=== PATIENT | male | born 1980 | race Caucasian/White ===

== ENCOUNTER 2018-10-06 10:33 | Emergency (ER) | payer OTHER ==
[~2018-10-06] VITALS: Ht 182.9 cm; Wt 83.9 kg
[2018-10-06] MEDS ORDERED: KEFLEX500 M1 PO (11:42)
[2018-10-06 12:19] VITALS: BP 146/106
== END 2018-10-06 12:19 | disposition home or self-care (01) ==
LOC: ER 10:33
DX: S61.211A Laceration without foreign body of left index finger without damage to nail, initial encounter (principal); M32.9 Systemic lupus erythematosus, unspecified; I10 Essential (primary) hypertension; F17.210 Nicotine dependence, cigarettes, uncomplicated; W26.0XXA Contact with knife, initial encounter; Y93.89 Activity, other specified; Y92.89 Other specified places as the place of occurrence of the external cause; Y99.8 Other external cause status

== ENCOUNTER 2020-06-10 10:16 | Emergency (ER) | payer BC ==
[~2020-06-10] VITALS: Ht 182.9 cm; Wt 81.7 kg
[~2020-06-10 10:16] MED LIST: KEFLEX500 M1 PO
[2020-06-10 10:25] VITALS: BP 145/113
[2020-06-10] MEDS ORDERED: AMOXICILLIN500 M1 PO (11:31)
== END 2020-06-10 11:50 | disposition home or self-care (01) ==
LOC: ER 10:16
DX: H61.22 Impacted cerumen, left ear (principal); H66.92 Otitis media, unspecified, left ear; I10 Essential (primary) hypertension; F17.210 Nicotine dependence, cigarettes, uncomplicated; Z79.2 Long term (current) use of antibiotics

== ENCOUNTER 2020-07-30 04:08 | Emergency (ER) | payer BC ==
[~2020-07-30] VITALS: Ht 182.9 cm; Wt 81.7 kg
[~2020-07-30 04:08] MED LIST changes: +AMOXICILLIN500 M1 PO
[2020-07-30 04:11] VITALS: BP 175/121
[2020-07-30] MEDS ORDERED: NORVASC 2.5 MG2.5 M1 PO (04:15)
[2020-07-30] MEDS ORDERED: CARVEDILOL12.5 MG PO (04:15)
[2020-07-30] MEDS ORDERED: LAMICTAL200 MG PO (04:16)
[2020-07-30] MEDS ORDERED: LISINOPRIL20 MG PO (04:16)
[2020-07-30] MEDS ORDERED: HYDROCHLOROTHIA25 M2 PO (04:16)
== END 2020-07-30 04:55 | disposition home or self-care (01) ==
LOC: ER 04:08
DX: H61.23 Impacted cerumen, bilateral (principal); I10 Essential (primary) hypertension; F17.210 Nicotine dependence, cigarettes, uncomplicated; Z79.899 Other long term (current) drug therapy

== ENCOUNTER 2020-11-20 10:03 | Emergency (ER) | payer OTHER ==
[~2020-11-20] VITALS: Ht 182.9 cm; Wt 81.7 kg
[~2020-11-20 10:03] MED LIST changes: +CARVEDILOL12.5 MG PO; +HYDROCHLOROTHIA25 M2 PO; +LAMICTAL200 MG PO; +LISINOPRIL20 MG PO; +NORVASC 2.5 MG2.5 M1 PO
[2020-11-20] MEDS ORDERED: CARBAMAZEPINE100 M2 PO (10:25)
[2020-11-20] MEDS ORDERED: LORAZEPAM 0.50.5 MG PO (10:26)
[2020-11-20] MEDS ORDERED: AMBIEN5 MG PO (10:26)
[2020-11-20 10:57] LABS: ABSOLUTE NEUTROPHILS 4.2 thou/uL (1.4-8.2); BASOPHILS 0.9 % (0.0-2.0); EOSINOPHILS 1.7 % (0.0-3.0); HEMATOCRIT 42.7 % (42.0-52.0); HEMOGLOBIN 14.6 gm/dL (14.0-18.0); LYMPHOCYTES 14.4 % (24.0-44.0); MCH 34.1 pg (26.0-34.0); MCHC 34.1 g/dL (28.0-37.0); MONOCYTES 7.3 % (1.0-8.0); PLATELET COUNT 158 thou/uL (150-400); POLYS 75.7 % (36.0-66.0); RBC 4.27 mil/uL (4.50-6.00); RDW 13.2 % (10.5-14.5); WBC 5.5 thou/uL (4.0-11.0)
[2020-11-20 11:11] LABS: CALCIUM 8.6 mg/dL (8.5-10.1); CREATININE 0.8 mg/dL (0.7-1.3); POTASSIUM 3.6 mmol/L (3.5-5.1)
[2020-11-20 12:11] VITALS: BP 137/72
== END 2020-11-20 12:12 | disposition home or self-care (01) ==
LOC: ER 10:03
PROVIDERS: Emergency Medicine
DX: I10 Essential (primary) hypertension (principal); Z20.822 Contact with and (suspected) exposure to COVID-19; R11.2 Nausea with vomiting, unspecified; R19.7 Diarrhea, unspecified; F41.9 Anxiety disorder, unspecified; F17.210 Nicotine dependence, cigarettes, uncomplicated; Z79.899 Other long term (current) drug therapy

== ENCOUNTER 2020-12-05 10:27 | Emergency (ER) | payer OTHER ==
[~2020-12-05] VITALS: Ht 182.9 cm; Wt 86.2 kg
[~2020-12-05 10:27] MED LIST changes: +AMBIEN5 MG PO; +CARBAMAZEPINE100 M2 PO; +LORAZEPAM 0.50.5 MG PO
[2020-12-05 12:40] LABS: ABSOLUTE NEUTROPHILS 2.5 thou/uL (1.4-8.2); BASOPHILS 1.4 % (0.0-2.0); HEMATOCRIT 44.8 % (42.0-52.0); HEMOGLOBIN 15.3 gm/dL (14.0-18.0); LYMPHOCYTES 24.6 % (24.0-44.0); MCH 34.1 pg (26.0-34.0); MCHC 34.1 g/dL (28.0-37.0); MCV 99.9 fL (80.0-100.0); MONOCYTES 12.2 % (1.0-8.0); PLATELET COUNT 211 thou/uL (150-400); POLYS 59.8 % (36.0-66.0); RBC 4.49 mil/uL (4.50-6.00); RDW 13.4 % (10.5-14.5); WBC 4.2 thou/uL (4.0-11.0)
[2020-12-05 12:49] LABS: ANION GAP 17 mmol/L (7-16); BUN 5 mg/dL (7-18); CALCIUM 8.8 mg/dL (8.5-10.1); CHLORIDE 102 mmol/L (98-107); CO2 19 mmol/L (21-32); CREATININE 0.9 mg/dL (0.7-1.3); GLUCOSE 96 mg/dL (74-106); POTASSIUM 4.1 mmol/L (3.5-5.1); SODIUM 138 mmol/L (136-145)
[2020-12-05 12:54] LABS: ALBUMIN 3.8 g/dL (3.4-5.0); SGOT 124 U/L (15-37); SGPT 93 U/L (16-63); TOTAL BILIRUBIN 0.3 mg/dL (0.2-1.0); TOTAL PROTEIN 9.2 g/dL (6.4-8.2)
[2020-12-05 12:54] LABS: AMP/METHAMP Negative (Negative); BARBITURATES Negative (Negative); BENZODIAZEPINES Negative (Negative); COCAINE Negative (Negative); METHADONE Negative (Negative); OPIATES Negative (Negative); PCP Negative (Negative)
--- NOTE | 2020-12-05 19:23 | NUR ---
SW contacted psychiatric facilities to follow up on referrals faxed. SW was informed that it was the beginning of the shift and they have not had a chance to look at the referrals yet. They will call back with an answer. SW team will remain available.
[2020-12-06 02:57] VITALS: BP 129/94
--- NOTE | 2020-12-06 09:15 | EKG ---
[address] [place] [address] ELECTROCARDIOGRAM REPORT Name: LINDA JOAQUIN Room #: DEP LAURITA Webber#: [id number] Admission: 12/05/20 Attend Phys: Discharge: 12/06/20 Date of : [birth year] Report #: [id number] 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
== END 2020-12-06 03:00 ==
LOC: ER 10:27
PROVIDERS: Emergency Medicine
DX: F32.9 Major depressive disorder, single episode, unspecified (principal); Z20.822 Contact with and (suspected) exposure to COVID-19; I10 Essential (primary) hypertension; F41.9 Anxiety disorder, unspecified; F17.210 Nicotine dependence, cigarettes, uncomplicated; F10.129 Alcohol abuse with intoxication, unspecified; Z79.899 Other long term (current) drug therapy; Y90.6 Blood alcohol level of 120-199 mg/100 ml

== ENCOUNTER 2020-12-16 22:31 | Emergency (ER) | payer OTHER ==
[~2020-12-16] VITALS: Ht 182.9 cm; Wt 81.7 kg
[2020-12-16 23:38] LABS: URINE BILIRUBIN NEGATIVE (Negative); URINE BLOOD TRACE (Negative); URINE CLARITY CLEAR; URINE COLOR YELLOW; URINE GLUCOSE-RANDOM* NEGATIVE (Negative); URINE KETONES NEGATIVE (Negative); URINE LEUKOCYTES-REFLEX NEGATIVE (Negative); URINE NITRITE-REFLEX NEGATIVE (Negative); URINE PROTEIN (DIPSTICK) 1+ (Negative); URINE UROBILINOGEN 0.2 E.U./dl (0.2-1.0)
[2020-12-16 23:41] LABS: ABSOLUTE NEUTROPHILS 2.1 thou/uL (1.4-8.2); HEMOGLOBIN 14.8 gm/dL (14.0-18.0); WBC 3.9 thou/uL (4.0-11.0)
[2020-12-16 23:43] LABS: BASOPHILS 3.3 % (0.0-2.0); EOSINOPHILS 2.7 % (0.0-3.0); MCH 33.8 pg (26.0-34.0); MCHC 34.4 g/dL (28.0-37.0); MCV 98.1 fL (80.0-100.0); MONOCYTES 10.1 % (1.0-8.0); PLATELET COUNT 190 thou/uL (150-400); POLYS 53.9 % (36.0-66.0); RBC 4.39 mil/uL (4.50-6.00); RDW 12.8 % (10.5-14.5)
[2020-12-16 23:46] LABS: AMP/METHAMP Negative (Negative); BARBITURATES Negative (Negative); BENZODIAZEPINES Negative (Negative); COCAINE Negative (Negative); METHADONE Negative (Negative); OPIATES Negative (Negative); PCP Negative (Negative)
[2020-12-17 00:03] LABS: ANION GAP 19 mmol/L (7-16); BUN 7 mg/dL (7-18); CALCIUM 8.4 mg/dL (8.5-10.1); CHLORIDE 95 mmol/L (98-107); CO2 21 mmol/L (21-32); CREATININE 0.8 mg/dL (0.7-1.3); GLUCOSE 101 mg/dL (74-106); POTASSIUM 3.5 mmol/L (3.5-5.1); SODIUM 135 mmol/L (136-145)
[2020-12-17 00:12] LABS: ALBUMIN 3.7 g/dL (3.4-5.0); LIPASE 145 U/L (73-393); SALICYLATE 5.8 mg/dL (2.8-20.0); SGOT 149 U/L (15-37); SGPT 113 U/L (16-63); TOTAL BILIRUBIN 0.2 mg/dL (0.2-1.0); TOTAL PROTEIN 8.6 g/dL (6.4-8.2)
[2020-12-17 00:34] LABS: BACTERIA-REFLEX 1-9 Few /HPF (None Seen); CRYSTALS None Seen /LPF (None Seen); FINE GRANULAR CASTS 0-3 Few /LPF (None Seen); HYALINE CASTS 0-3 Few /LPF (None Seen); MUCUS 0-3 Light strn/LPF (None Seen); SQUAMOUS None Seen /LPF (0-3); URINE RBC None Seen /HPF (NONE SEEN); URINE WBC-REFLEX None Seen /HPF (0-5)
[2020-12-17 10:36] VITALS: BP 170/122
--- NOTE | 2020-12-17 11:40 | EKG ---
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
== END 2020-12-17 10:36 | disposition home or self-care (01) ==
LOC: ER 22:31
PROVIDERS: Emergency Medicine
DX: R45.851 Suicidal ideations (principal); Z20.822 Contact with and (suspected) exposure to COVID-19; F10.10 Alcohol abuse, uncomplicated; I10 Essential (primary) hypertension; F17.210 Nicotine dependence, cigarettes, uncomplicated

== ENCOUNTER 2021-02-18 23:30 | Emergency (ER) | payer OTHER ==
[~2021-02-18] VITALS: Ht 182.9 cm; Wt 77.1 kg
[2021-02-18 23:41] VITALS: BP 135/91
== END 2021-02-19 00:08 | disposition home or self-care (01) ==
LOC: ER 23:30
DX: R45.851 Suicidal ideations (principal); I10 Essential (primary) hypertension; F41.9 Anxiety disorder, unspecified; F17.210 Nicotine dependence, cigarettes, uncomplicated; Z79.2 Long term (current) use of antibiotics; Z79.899 Other long term (current) drug therapy

== ENCOUNTER 2021-06-11 20:17 | Emergency (ER) | payer OTHER ==
[~2021-06-11] VITALS: Ht 182.9 cm; Wt 81.7 kg
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
[2021-06-11 20:59] LABS: AMP/METHAMP Negative (Negative); BARBITURATES Negative (Negative); BENZODIAZEPINES Negative (Negative); COCAINE Negative (Negative); METHADONE Negative (Negative); OPIATES Negative (Negative); PCP Negative (Negative)
[2021-06-11 21:35] LABS: ABSOLUTE NEUTROPHILS 1.8 thou/uL (1.4-8.2); BASOPHILS 0.4 % (0.0-2.0); EOSINOPHILS 3.6 % (0.0-3.0); HEMATOCRIT 42.1 % (42.0-52.0); LYMPHOCYTES 30.5 % (24.0-44.0); MCH 33.4 pg (26.0-34.0); MCHC 33.3 g/dL (28.0-37.0); MCV 100.5 fL (80.0-100.0); MONOCYTES 14.4 % (1.0-8.0); PLATELET COUNT 170 thou/uL (150-400); POLYS 51.1 % (36.0-66.0); RBC 4.19 mil/uL (4.50-6.00); RDW 14.7 % (10.5-14.5); WBC 3.4 thou/uL (4.0-11.0)
[2021-06-11 21:42] LABS: CALCIUM 8.5 mg/dL (8.5-10.1); CREATININE 0.7 mg/dL (0.7-1.3); POTASSIUM 3.8 mmol/L (3.5-5.1)
[2021-06-11 22:12] VITALS: BP 156/98
== END 2021-06-11 22:12 | disposition home or self-care (01) ==
LOC: ER 20:17
PROVIDERS: Emergency Medicine
DX: F10.129 Alcohol abuse with intoxication, unspecified (principal); Z20.822 Contact with and (suspected) exposure to COVID-19; F41.9 Anxiety disorder, unspecified; I10 Essential (primary) hypertension; F17.210 Nicotine dependence, cigarettes, uncomplicated; Z79.891 Long term (current) use of opiate analgesic; Z79.899 Other long term (current) drug therapy; Y90.9 Presence of alcohol in blood, level not specified

== ENCOUNTER 2021-07-22 12:48 | Emergency (ER) | payer OTHER ==
[~2021-07-22] VITALS: Ht 182.9 cm; Wt 81.7 kg
[2021-07-22 13:28] LABS: ABSOLUTE NEUTROPHILS 4.5 thou/uL (1.4-8.2); BASOPHILS 0.9 % (0.0-2.0); EOSINOPHILS 0.4 % (0.0-3.0); HEMATOCRIT 44.3 % (42.0-52.0); HEMOGLOBIN 15.3 gm/dL (14.0-18.0); LYMPHOCYTES 12.6 % (24.0-44.0); MCH 34.5 pg (26.0-34.0); MCHC 34.5 g/dL (28.0-37.0); MONOCYTES 17.3 % (1.0-8.0); PLATELET COUNT 195 thou/uL (150-400); POLYS 68.8 % (36.0-66.0); RBC 4.42 mil/uL (4.50-6.00); RDW 13.8 % (10.5-14.5); WBC 6.5 thou/uL (4.0-11.0)
[2021-07-22 13:39] LABS: ALBUMIN 3.6 g/dL (3.4-5.0); CALCIUM 9.2 mg/dL (8.5-10.1); CREATININE 0.8 mg/dL (0.7-1.3); TOTAL BILIRUBIN 0.7 mg/dL (0.2-1.0); TOTAL PROTEIN 9.1 g/dL (6.4-8.2)
[2021-07-22 13:42] LABS: POTASSIUM 2.9 mmol/L (3.5-5.1)
[2021-07-22 15:02] VITALS: BP 160/95
--- NOTE | 2021-07-23 07:39 | EKG ---
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 : 1980 Requested By: Rhonda Stevens Order Number: [id number] MD: Maury Hawkins Measurements Intervals [place] Rate: 124 P: 72 [place]: 150 QRS: 87 QRSD: 94 T: 47 QT: 322 QTc: 463 Interpretive Statements Sinus tachycardia Probable anteroseptal infarct, old Compared to ECG 12/16/2020 23:09:59 No significant changes Electronically Signed On 07-23-2021 7:39:15 ALLERGY NURSE by Maury Hawkins [email or web address] <ELECTRONICALLY SIGNED> By: Maury Hawkins MD, [facility] 07/23/21 0739 1352 1352 Maury Hawkins MD, FACC /EPI
== END 2021-07-22 15:05 | disposition home or self-care (01) ==
LOC: ER 12:48
PROVIDERS: Emergency Medicine
DX: U07.1 COVID-19 (principal); F41.9 Anxiety disorder, unspecified; F10.20 Alcohol dependence, uncomplicated; Y90.9 Presence of alcohol in blood, level not specified; R74.8 Abnormal levels of other serum enzymes; I10 Essential (primary) hypertension; F17.210 Nicotine dependence, cigarettes, uncomplicated; Z79.899 Other long term (current) drug therapy